=== PATIENT | female | born 2000 | race Caucasian/White ===

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

== ENCOUNTER 2022-07-19 04:33 | Emergency (ER) | payer BC ==
--- OUTSIDE RECORDS SUMMARY | 2022-07-19 04:37 | XMS REPORT | Continuity of Care Document ---
:[address] [facility] t Address [address] [place] [address] Care Team Providers Name Role Phone Lily Kenny Primary Care Physician LILY JOHNSON Attending Clinician Unavailable SOCO RICE Attending Clinician Unavailable Doctor Unassigned, Ivalee Attending Clinician Unavailable Lab, Ang - Db Attending Clinician Unavailable Lily Kenny Attending Clinician Soco [place] Attending Clinician KYA GOVEA Attending Clinician Unavailable Payers Payer Name Policy Type Policy Number Effective Date Expiration Date S [facility] 2 [id number] 2022 00:00:00 [facility] [id number] 2016 00:00:00 Problems Condition Condition Condition Status Onset Resolution Last Treating Co mments Source Name Details Category Date Date Treatment Clinician Date Encounter Encounter Disease Active 2021-06 Uni vers to to 2- [place] [facility] Anxiety Anxiety Disease Active 2021-06 Univers and and 2-05 [place] [facility] Mood Mood Disease Active 2021-06 Univers disorder disorder 2-05 ity of 00:00: [place] [facility] Allergies, Adverse Reactions, Alerts Allergy Allergy Status Severity Reaction(s) Onset Inactive Treating Comm ents Source Name Type Date Date Clinician PENICILL DRUG Active Hives 2021-06 Univers IN INGREDI 2-05 ity of 00:00: [place] 00 Medical Branch Penicill Propensi Active Hives 2021-06 Legs turn Uni vers in ty to 05 black and ity of adverse 00:00: blue [place] reaction 00 Medical s Branch NO KNOWN Drug Active Univers ALLERGIE Class ity of S [facility] [place] Social History Social Habit Start Date Stop Date Quantity Comments Source Exposure to 2022-05-11 2022-05-21 Not sure [facility] SARS-CoV-2 00:00:00 09:45:00 [facility] (event) Branch Tobacco use and 2022-05-21 2022-05-21 Smokeless tobacco Un iversity of exposure 00:00:00 00:00:00 non-user [facility] [place] Alcohol intake 2022-05-21 2022-05-21 Current drinker of Un iversity of 00:00:00 00:00:00 alcohol (finding) [facility] edical [place] Alcohol Comment 2022-05-21 2022-05-21 Occasional Universit y of 00:00:00 00:00:00 [facility] [place] Sex Assigned At [birth year] Universit y of 00:00:00 00:00:00 [facility] [place] Smoking Status Start Date Stop Date Source Tobacco [facility] Medications Ordered Filled Start Stop Current Ordering Indication Dosage Frequency Signature Comments Components Source Medication Medication Date Date Medication? Clinician (SIG) Name Name lamoTRIgine 2021-06 Yes [id number] Take 25mg Univers 25 mg 2-05 daily for ity of tablet 00:00: 2 weeks, [place] 00 then 50mg Medical for 2 Branch weeks Lamotrigine 2021-06 Yes [id number] 50mg Take 1 Univers 50 mg 2-05 tablet by ity of tablet 00:00: mouth in [place] 00 the Medical morning. Branch lamoTRIgine 2021-06 Yes [id number] Take 25mg Univers 25 mg 2-05 daily for ity of tablet 00:00: 2 weeks, [place] 00 then 50mg Medical for 2 Branch weeks Lamotrigine 2021-06 Yes [id number] 50mg Take 1 Univers 50 mg 2-05 tablet by ity of tablet 00:00: mouth in [place] 00 the Medical morning. [place] lamoTRIgine 2021-06 Yes [id number] Take 25mg Univers 25 mg 2-05 daily for ity of tablet 00:00: 2 weeks, [place] 00 then 50mg Medical for 2 Branch weeks Lamotrigine 2021-06 Yes [id number] 50mg Take 1 Univers 50 mg 2-05 tablet by ity of tablet 00:00: mouth in [place] 00 the Medical morning. [place] lamoTRIgine 2021-06 Yes [id number] Take 25mg Univers 25 mg 2-05 daily for ity of tablet 00:00: 2 weeks, [place] 00 then 50mg Medical for 2 Branch weeks Lamotrigine 2021-06 Yes [id number] 50mg Take 1 Univers 50 mg 2-05 tablet by ity of tablet 00:00: mouth in [place] 00 the Medical morning. [place] lamoTRIgine 2021-06 Yes [id number] Take 25mg Univers 25 mg 2-05 daily for ity of tablet 00:00: 2 weeks, [place] 00 then 50mg Medical for 2 Branch weeks Lamotrigine 2021-06 Yes [id number] 50mg Take 1 Univers 50 mg 2-05 tablet by ity of tablet 00:00: mouth in [place] 00 the Medical morning. [place] lamoTRIgine 2021-06 Yes [id number] Take 25mg Univers 25 mg 2-05 daily for ity of tablet 00:00: 2 weeks, [place] 00 then 50mg Medical for 2 Branch weeks Lamotrigine 2021-06 Yes [id number] 50mg Take 1 Univers 50 mg 2-05 tablet by ity of tablet 00:00: mouth in [place] 00 the Medical morning. [place] lamoTRIgine 2021-06 Yes [id number] Take 25mg Univers 25 mg 2-05 daily for ity of tablet 00:00: 2 weeks, [place] 00 then 50mg Medical for 2 Branch weeks Lamotrigine 2021-06 Yes [id number] 50mg Take 1 Univers 50 mg 2-05 tablet by ity of tablet 00:00: mouth in [place] 00 the Medical morning. [place] Vital Signs Vital Name Observation Time Observation Value Comments Source Systolic blood 2022-05-21 16:07:00 129 mm[Hg] Ashley contreras [facility] pressure Medical Branch Diastolic blood 2022-05-21 16:07:00 77 mm[Hg] [facility] pressure Medical Branch Heart rate 2022-05-21 16:07:00 87 /min [facility] Body height 2022-05-21 16:07:00 160 cm [facility] Body weight 2022-05-21 16:07:00 61.281 kg [facility] BMI 2022-05-21 16:07:00 23.93 kg/m2 [facility] Oxygen saturation 2022-05-21 16:07:00 100 /min [facility] in Arterial blood Medical Br anch by Pulse oximetry Procedures Procedure Date / Time Performed Performing Clinician Sour e PATIENT AGREEMENTS AND 2022-05-31 06:01:00 Doctor Unassigned, No [facility] CONTRACTS [facility] COMP. METABOLIC PANEL 2022-05-21 17:01:00 Lily Johnson [facility] ([id number]) [facility] CONSENT/REFUSAL FOR 2022-05-21 15:47:22 Doctor Unassigned, No [facility] DIAGNOSIS AND [facility] TREATMENT ASSIGNMENT OF BENEFITS 2022-05-21 15:47:05 Doctor Unasskvng, No [facility] Encounters Start End Encounter Admission Attending Care Care Encounter Source Date/Time Date/Time Type Type Clinicians Facility Department ID 2022-06-20 2022-06-20 Outpatient ZEE RICE [id number] Zee 13:30:00 13:30:00 SOCO granda 2022-06-12 2022-06-12 Outpatient ZEE RICE [id number] Zee 00:00:00 00:00:00 SOCO granda 2022-06-04 2022-06-[address] [facility] [id number] Univers 11:00:00 11:00:00 LILY jaimes [facility] 2022-05-31 2022-05-31 Orders Doctor BARCENAS [id number] Univers 00:00:00 00:00:00 Only Unassigned, GEOVANY [id number] [facility] 4.2.7.2.686 [place] [id number] [address] 2022-05-21 2022-05-21 Process Improvement Analyst Lab, Ang - Db [facility] 1.2.840.1 [id number] Univers 11:00:00 13:49:53 Visit Lily Johnson [id number] [facility] 4.2.7.2.686 [place] as YAMILETH?BLEA [phone] [facility] [address] [place] MEDICAL OFFICE [facility] 2022-05-21 2022-05-21 Outpatient R [facility] [id number] Univers 10:00:00 10:54:45 LILY ity of [facility] [place] 2022-05-21 2022-05-21 Office Elizabeth [facility] [id number] Univers 10:00:00 10:54:45 Visit Lily LONDONO [id number] it y of [place] 4.2.7.2.686 [place] as YAMILETH?BLEA [id number] [facility] [address] [facility] OFFICE [facility] 2022-05-21 2022-05-21 Letter Elizabeth [facility] [id number] Univers 00:00:00 00:00:00 (Out) Lily LONDONO [id number] it y of [place] 4.2.7.2.686 [place] as YAMILETH?BLEA [phone] [address] OFFICE [facility] 2022-05-21 2022-05-21 Orders Doctor SWAPNA 1.2.840.114 [id number] Univers 00:00:00 00:00:00 Only Unassigned, GEOVANY [id number] ity of Ivalee [facility] 4.2.7.2.686 [place] as [id number] [address] 2022-02-22 2022-02-22 Office Te Rice 1.2.840.114 [id number] Zee 10:30:00 11:00:00 Visit Soco Vogt 350.1.13.13 Se onesimo 1.2.7.2.686 [id number] 2022-02-21 2022-02-21 Outpatient ZEE GOVEA [id number] Zee 00:00:00 00:00:00 KYA granda Results Test Description Test Time Test Comments Results Result Comments Source COMP. METABOLIC PANEL (06009) 2022-05-21 22:23:49 Test Item Value Reference Range Interpretation Comme nts NA (test code = 6770687470) 140 mmol/L 135-145 K (test code = 9405237628) 3.9 mmol/L 3.5-5.0 CL (test code = 4627055822) 103 mmol/L 98-108 CO2 TOTAL (test code = 2602035415) 30 mmol/L 23-31 AGAP (test code = 3247666860) 2-16 BUN (test code = 8177479002) 9 mg/dL 7-23 GLUCOSE (test code = 6313145027) 113 mg/dL 70-110 H CREATININE (test code = 0.61 mg/dL 0.50-1.04 6138735325) TOTAL BILI (test code = 0.4 mg/dL 0.1-1.3 0417006074) CALCIUM (test code = 8428351718) 9.9 mg/dL 8.6-10.6 T PROTEIN (test code = 4259676122) 7.5 g/dL 6.3-8.2 ALBUMIN (test code = 9310882594) 4.9 g/dL 3.5-5.0 ALK PHOS (test code = 7272691135) 59 U/L 34-122 ALTv (test code = 1742-6) 14 U/L 5-35 AST(SGOT) (test code = 8965519998) 19 U/L 13-40 eGFR (test code = 0331883965) mL/min/1.73m2 MALDONADO (test code = MALDONADO) Association of Glomerular Filtration Rate (GFR) and Staging of Kidney Disease* + +-------- + ------+| GFR (mL/min/1.73 m2) ?| With Kidney Damage ?| ?Without Kidney Damage+ +-- + +| ?>90 ?| ?Stage one ?| ? Normal ?+ +------- + -------+| ?60-89 ?| ?Stage two ?| ? Decreased GFR ? + +-------- + ------+| ?30-59 ?| ?Stage three ?| ? Stage three ? + +-------- + ------+| ?15-29 ?| ?Stage four ? | ? Stage four ?+ +------- + -------+| ?<15 (or dialysis) ? ?| ?Stage five ? | ? Stage five ?+ +------- + -------+ *Each stage assumes the associated GFR level has been in effect for at least three months. ?Stages 1 to 5, with or without kidney disease, indicate chronic kidney disease. Notes: Determination of stages one and two (with eGFR >59mL/min/1.73 m2) requires estimation of kidney damage for at least three months as defined by structural or functional abnormalities of the kidney, manifested by either:Pathological abnormalities or Markers of kidney damage (including abnormalities in the composition of the blood or urine or abnormalities in imaging tests). Lab Interpretation (test code = Abnormal 45022-1) [facility]"
--- NOTE | 2022-07-19 05:18 | ER ---
Nurse's Notes [facility] Name: Mary Nevarez Age: 22 yrs Sex: Female : 2000 Arrival Date: 07/19/2022 Time: 04:37 Bed 20 Private MD: Diagnosis: Adjustment disorders Presentation: 07/19 04:47 Chief complaint: Patient states: I have been feeling extremely sad and on the past ha1 whenever I have gotten like this I have attempted to harm myself and I do not want to get like that. right now I am not trying to harm my self. 04:47 Coronavirus screen: Vaccine status: Patient reports being unvaccinated. Ebola Screen: ha1 No symptoms or risks identified at this time. Initial Sepsis Screen: Does the patient meet any 2 criteria? No. Patient's initial sepsis screen is negative. Does the patient have a suspected source of infection? No. Patient's initial sepsis screen is negative. Risk Assessment: Do you want to hurt yourself or someone else? Patient reports no desire to harm self or others. Onset of symptoms was July 19, 2022. 04:47 Method Of Arrival: Ambulatory ha1 04:47 Acuity: ZOEY 4 ha1 Triage Assessment: 04:47 General: Appears comfortable, Behavior is calm, cooperative. Pain: Denies pain. EENT: ha1 No deficits noted. No signs and/or symptoms were reported regarding the EENT system. Neuro: Level of Consciousness is awake, alert, obeys commands, Oriented to person, place, time, situation. Neuro: Reports feeling anxious . Cardiovascular: Capillary refill < 3 seconds Patient's skin is warm and dry. Respiratory: Airway is patent Respiratory effort is even, unlabored, Respiratory pattern is regular, symmetrical. GI: Abdomen is flat. : No signs and/or symptoms were reported regarding the genitourinary system. Derm: Skin is pink, warm \\T\\ dry. Musculoskeletal: Circulation, motion, and sensation intact. Range of motion: intact in all extremities. Historical: - Allergies: 05:02 PENICILLINS; ha1 05:02 Amoxicillin; ha1 - Home Meds: 05:02 None [Active]; ha1 - PMHx: 05:02 Anxiety; Depressive disorder; ha1 - Immunization history:: Adult Immunizations up to date. - Social history:: Smoking status: Patient denies any tobacco usage or history of. - Family history:: not pertinent. Screenin:47 Abuse screen: Denies threats or abuse. Denies injuries from another. Nutritional ha1 screening: No deficits noted. Tuberculosis screening: No symptoms or risk factors identified. 04:47 [facility] ED Fall Risk Assessment (Adult) History of falling in the last 3 months, ha1 including since admission No falls in past 3 months (0 pts) Confusion or Disorientation No (0 pts) Intoxicated or Sedated No (0 pts) Impaired Gait No (0 pts) Mobility Assist Device Used No (0 pt) Altered Elimination No (0 pt) Score/Fall Risk Level 0 - 2 = Low Risk Oriented to surroundings, Maintained a safe environment, Educated pt \\T\\ family on fall prevention, incl call for assistance when getting out of bed, Hourly rounding (assess needs \\T\\ fall precautionary measures) done. Assessment: 05:32 General: Appears in no apparent distress. comfortable, Behavior is calm, cooperative. ll3 Pain: Denies pain. Neuro: No deficits noted. Cardiovascular: No deficits noted. Respiratory: No deficits noted. GI: No deficits noted. : No deficits noted. Psych: 04:47 [place] Suicide Severity Screening: In the past month, have you wished you were ha1 or wished you could go to sleep and not wake up? Patient responds "No." "In the past month, have you actually had any thoughts of killing yourself?" Patient responds "no." "In your lifetime, have you ever done anything, started to do anything, or prepared to do anything to end your life?" Patient responds "yes." Patient reports suicidal intent within 3 past months. Subjective: Patient's mood is sad. Objective: Patient is cooperative. Interventions: Patient placed in hospital gown. Safety Checks: Door is open. Pt denies substance abuse. Commitment: Patient will be a voluntary commitment. Vital Signs: 04:47 BP 120 / 82; Pulse 104; Resp 18 S; Temp 98.4; Pulse Ox 100% on R/A; Weight 58.97 kg; ha1 Height 5 ft. 4 in. (162.56 cm); 05:36 BP 115 / 77; Pulse 68; Resp 16; Pulse Ox 99% on R/A; ll3 04:47 Body Mass Index 22.31 (58.97 kg, 162.56 cm) ha1 ED Course: 04:37 Patient arrived in ED. ja2 04:47 Patient has correct armband on for positive identification. Bed in low position. Call 1 light in reach. Side rails up X 1. 04:48 Aaron Clayton MD is Attending Physician. rt 04:57 Chayito Phelps, RN is Primary Nurse. ha1 05:02 Triage completed. ha1 05:05 Arm band placed on right wrist. ha1 05:36 No provider procedures requiring assistance completed. Patient did not have IV access ll3 during this emergency room visit. Administered Medications: No medications were administered Medication: 05:36 VIS not applicable for this client. ll3 Outcome: 05:18 Discharge ordered by MD. rt 05:36 Discharged to home ambulatory. ll3 05:36 Condition: stable 05:36 Discharge instructions given to patient, Instructed on discharge instructions, follow up and referral plans. Demonstrated understanding of instructions, follow-up care. 05:36 Patient left the ED. ll3 Signatures: Micki Pinedo 2 Vernell Arita RN RN 3 Chayito Phelps, DARLIN RN 1 Aaron Clayton MD MD rt Corrections: (The following items were deleted from the chart) 05:03 05:02 PMHx: None; ha1 ha1
--- NOTE | 2022-07-19 05:19 | EDPHYS ---
Physician Documentation [facility] Name: Mary Nevarez Age: 22 yrs Sex: Female : 2000 Arrival Date: 07/19/2022 Time: 04:37 Bed 20 Private MD: ED Physician Aaron Clayton HPI: 07/19 05:20 This 22 yrs old Female presents to ER via Ambulatory with complaints of Psych Problem. rt 05:20 The patient presents to the emergency department with depression. Onset: The rt symptoms/episode began/occurred 5 day(s) ago. Patient presents to the ED with depression for the past 5 days. She is currently taking Abilify for her depression. She states that when she gets depressed, sometimes she gets suicidal or has thoughts about her anybody else but she denies any suicidality at this time. Patient is try to get in with [employer], states that she called them on Saturday, they have not called her back yet. She denies any physical symptoms, other acute complaints. Symptoms are mild in severity, no other aggravating or alleviating factors.. Historical: - Allergies: 05:02 PENICILLINS; ha1 05:02 Amoxicillin; ha1 - Home Meds: 05:02 None [Active]; ha1 - PMHx: 05:02 Anxiety; Depressive disorder; ha1 - Immunization history:: Adult Immunizations up to date. - Social history:: Smoking status: Patient denies any tobacco usage or history of. - Family history:: not pertinent. ROS: 05:20 Constitutional: Negative for fever, chills, and weight loss, Cardiovascular: Negative rt for chest pain, palpitations, and edema, Respiratory: Negative for shortness of breath, cough, wheezing, and pleuritic chest pain, Abdomen/GI: Negative for abdominal pain, nausea, vomiting, diarrhea, and constipation, MS/Extremity: Negative for injury and deformity, Skin: Negative for injury, rash, and discoloration, Neuro: Negative for headache, weakness, numbness, tingling, and seizure. 05:20 Psych: Positive for depression, Negative for homicidal ideation, suicidal ideation. Exam: 05:20 Constitutional: This is a well developed, well nourished patient who is awake, alert, rt and in no acute distress. Head/Face: Normocephalic, atraumatic. Chest/axilla: Normal chest wall appearance and motion. Nontender with no deformity. No lesions are appreciated. Cardiovascular: Regular rate and rhythm with a normal S1 and S2. No gallops, murmurs, or rubs. Normal PMI, no JVD. No pulse deficits. Respiratory: Lungs have equal breath sounds bilaterally, clear to auscultation and percussion. No rales, rhonchi or wheezes noted. No increased work of breathing, no retractions or nasal flaring. Abdomen/GI: Soft, non-tender, with normal bowel sounds. No distension or tympany. No guarding or rebound. No evidence of tenderness throughout. MS/ Extremity: Pulses equal, no cyanosis. Neurovascular intact. Full, normal range of motion. Neuro: Awake and alert, GCS 15, oriented to person, place, time, and situation. Cranial nerves II-XII grossly intact. Motor strength 5/5 in all extremities. Sensory grossly intact. Cerebellar exam normal. Normal gait. 05:20 Psych: Calm, cooperative, affect and mood are depressed no suicidal ideation, homicidal ideation. Vital Signs: 04:47 BP 120 / 82; Pulse 104; Resp 18 S; Temp 98.4; Pulse Ox 100% on R/A; Weight 58.97 kg; ha1 Height 5 ft. 4 in. (162.56 cm); 05:36 BP 115 / 77; Pulse 68; Resp 16; Pulse Ox 99% on R/A; ll3 04:47 Body Mass Index 22.31 (58.97 kg, 162.56 cm) ha1 MDM: 05:08 Patient medically screened. rt 05:20 Differential diagnosis: Depression, suicidal ideation, homicidal ideation. Data rt reviewed: vital signs, nurses notes. Test considered but Not performed: Labs: Stable vital signs, labs not indicated. ED course: Patient presents to the ED with depression, seems to be situational. She denies any suicidal thoughts at this time. Patient is cooperative, has good insight and goal-directed thought. At this time, I do not believe that she is an imminent threat to herself nor others nor she gravely disabled. Do not believe that she requires involuntary psychiatric evaluation. I offered to patient discussed with [facility] or to have her call them in the morning, patient opted to call them in the morning. Strict return precautions for any suicidal thoughts were given to the patient verbalized understanding discomfort with this plan.. Administered Medications: No medications were administered Disposition Summary: 07/19/22 05:18 Discharge Ordered Location: Home rt Problem: an acute exacerbation rt Symptoms: have improved rt Condition: Stable rt Diagnosis - Adjustment disorders rt Followup: rt - With: Private Physician - When: 1 - 2 days - Reason: Discharge Instructions: - Discharge Summary Sheet rt - Adjustment Disorder, Adult rt - Managing Depression, Adult rt Forms: - Medication Reconciliation Form rt - Thank You Letter rt - Work release form ll3 - Antibiotic Education rt - Prescription Opioid Use rt Signatures: Chayito Phelps RN RN ha1 Aaron Clayton MD MD rt Corrections: (The following items were deleted from the chart) 05:03 05:02 PMHx: None; ha1 ha1
[2022-07-19 05:42] VITALS: TEMP 98.4
[2022-07-19 05:43] VITALS: BP 115/77; O2SAT 99
== END 2022-07-19 05:36 | disposition home or self-care (01) ==
LOC: ER 04:33
DX: F43.20 Adjustment disorder, unspecified (principal); Z88.0 Allergy status to penicillin; Z88.1 Allergy status to other antibiotic agents
CPT/HCPCS: 99284

== ENCOUNTER 2022-12-27 21:41 | Emergency (ER) | payer BC ==
--- OUTSIDE RECORDS SUMMARY | 2022-12-27 21:44 | XMS REPORT | Continuity of Care Document ---
:2000 Author Organization [facility] t Address [address] [place] [id number] Care Team Providers Name Role Phone Lily Kenny Primary Care Physician ShannanPapbrian Attending Clinician Unavailable LILY JOHNSON Attending Clinician Unavailable SOCO RICE Attending Clinician Unavailable Doctor Unassigned, [place] Attending Clinician Unavailable Lab, Ang - Db Attending Clinician Unavailable Lily Kenny Attending Clinician Soco [place] Attending Clinician KYA GOVEA Attending Clinician Unavailable G_Pappas Admitting Clinician Unavailable Payers Payer Name Policy Type Policy Number Effective Date Expiration Date S e[place] [id number] 2016 00:[place]:00 [place] 2 [id number] 2022 00:00:00 [place] [id number] 2016 00:00:00 Problems Condition Condition Condition Status Onset Resolution Last Treating Co mments Source Name Details Category Date Date Treatment Clinician Date Encounter Encounter Disease Active 2021-06 Uni vers to to 2- [place] [facility] Anxiety Anxiety Disease Active 2021-06 Univers and and 2 [place] [facility] [place] Mood Mood Disease Active 2021-06 Univers disorder disorder 07-22 ity of 00:00: [place] 00 Medical Branch Allergies, Adverse Reactions, Alerts Allergy Allergy Status Severity Reaction(s) Onset Inactive Treating Comm ents Source Name Type Date Date Clinician PENICILL DRUG Active Hives 2021-06 Univers IN INGREDI 205 ity of 00:00: [place] 00 Medical Branch Penicill Propensi Active Hives 2021-06 Legs turn Uni vers in ty to 07-22 black and ity of adverse 00:00: blue [place] reaction 00 Medical s Branch PENICILL Allergy Active [place] [facility] e [facility] NO KNOWN Drug Active Univers ALLERGIE Class ity of S [facility] Amoxicil Allergy Active [place] to [facility] e [facility] Social History Social Habit Start Date Stop Date Quantity Comments Source Exposure to 2022-05-11 2022-05-21 Not sure [facility] SARS-CoV-2 00:00:00 09:45:00 [facility] (event) Branch Tobacco use and 2022-05-21 2022-05-21 Smokeless tobacco Un iversity of exposure 00:00:00 00:00:00 non-user [facility] Alcohol intake 2022-05-21 2022-05-21 Current drinker of Un iversity of 00:00:00 00:00:00 alcohol (finding) [facility] edical [place] Alcohol Comment 2022-05-21 2022-05-21 Occasional Universit y of 00:00:00 00:00:00 [facility] Sex Assigned At [birth year] Universit y of 00:00:00 00:00:00 [facility] Smoking Status Start Date Stop Date Source Never Smoker [facility] Tobacco [facility] consumption [facility] unknown Branch Medications Ordered Filled Start Stop Current Ordering Indication Dosage Frequency Signature Comments Components Source Medication Medication Date Date Medication? Clinician (SIG) Name Name lamoTRIgine 2021-06 Yes [id number] Take 25mg Univers 25 mg 2-05 daily for ity of tablet 00:00: 2 weeks, [place] 00 then 50mg Medical for 2 Branch weeks Lamotrigine 2021-06 Yes [id number] 50mg Take 1 Univers 50 mg 2-05 tablet by ity of tablet 00:00: mouth in [place] 00 the Medical morning. Branch lamoTRIgine 2021-06 Yes [id number] Take 25mg Univers 25 mg 2-05 daily for ity of tablet 00:00: 2 weeks, [place] 00 then 50mg Medical for 2 Branch weeks Lamotrigine 2021-06 Yes [id number] 50mg Take 1 Univers 50 mg 2-05 tablet by ity of tablet 00:00: mouth in [place] 00 the Medical morning. [place] lamoTRIgine 2021-06 Yes [id number] Take 25mg Univers 25 mg 2-05 daily for ity of tablet 00:00: 2 weeks, [place] 00 then 50mg Medical for 2 Branch weeks Lamotrigine 2021-06 Yes [id number] 50mg Take 1 Univers 50 mg 2-05 tablet by ity of tablet 00:00: mouth in [place] 00 the Medical morning. [place] lamoTRIgine 2021-06 Yes [id number] Take 25mg Univers 25 mg 2-05 daily for ity of tablet 00:00: 2 weeks, 00 then 50mg Medical for 2 Branch weeks Lamotrigine 2021-06 Yes [id number] 50mg Take 1 Univers 50 mg 2-05 tablet by ity of tablet 00:00: mouth in [place] 00 the Medical morning. [place] lamoTRIgine 2021-06 Yes [id number] Take 25mg Univers 25 mg 2-05 daily for ity of tablet 00:00: 2 weeks, [place] 00 then 50mg Medical for 2 Branch weeks Lamotrigine 2021-06 Yes [id number] 50mg Take 1 Univers 50 mg 2-05 tablet by ity of tablet 00:00: mouth in [place] 00 the Medical morning. [place] lamoTRIgine 2021-06 Yes [id number] Take 25mg Univers 25 mg 2-05 daily for ity of tablet 00:00: 2 weeks, [place] 00 then 50mg Medical for 2 Branch weeks Lamotrigine 2021-06 Yes [id number] 50mg Take 1 Univers 50 mg 2-05 tablet by ity of tablet 00:00: mouth in [place] 00 the Medical morning. [place] lamoTRIgine 2021-06 Yes [id number] Take 25mg Univers 25 mg 2-05 daily for ity of tablet 00:00: 2 weeks, [place] 00 then 50mg Medical for 2 Branch weeks Lamotrigine 2021-06 Yes [id number] 50mg Take 1 Univers 50 mg 2-05 tablet by ity of tablet 00:00: mouth in [place] 00 the Medical morning. Branch doxycycline doxycycline No 1capsul BID doxycyclin [place] monohydrate monohydrate e(s) e d a 100 mg 100 mg monohydrat Medic al capsule capsule e 100 mg Group Take 1 Take 1 capsule capsule capsule Take 1 twice a day twice a day capsule by oral by oral twice a route for 7 route for 7 day by days. days. oral route for 7 days. oxcarbazepi oxcarbazepi No oxcarbazep [place] ne 300 mg/5 ne 300 mg/5 ine 300 da mL (60 mL (60 mg/5 mL Medical mg/mL) oral mg/mL) oral (60 mg/mL) Group suspension suspension oral TAKE 2.5 TAKE 2.5 suspension ML(S) BY ML(S) BY TAKE 2.5 MOUTH TWICE MOUTH TWICE ML(S) BY DAILY FOR DAILY FOR MOUTH LABILE LABILE TWICE MOOD. MOOD. DAILY FOR LABILE MOOD. Vital Signs Vital Name Observation Time Observation Value Comments Source BP Diastolic 2022-08-28 00:00:00 82 mm[facility]Hg] [facility] Height 2022-08-28 00:00:00 63 [in_i] [facility] BMI (Body Mass 2022-08-28 00:00:00 25 kg/m2 [facility] routeman Medical Index) Group BP Systolic 2022-08-28 00:00:00 134 mm[Hg] [place] [facility] Body Weight 2022-08-28 00:00:00 141.2 [lb_av] [place] [facility] Systolic blood 2022-05-21 16:07:00 129 mm[Hg] [facility] pressure [facility] Diastolic blood 2022-05-21 16:07:00 77 mm[Hg] [facility] [place] Heart rate 2022-05-21 16:07:00 87 /min [facility] Body height 2022-05-21 16:07:00 160 cm [facility] Body weight 2022-05-21 16:07:00 61.281 kg [facility] BMI 2022-05-21 16:07:00 23.93 kg/m2 [facility] Oxygen saturation 2022-05-21 16:07:00 100 /min [facility] in Arterial blood Medical Br anch by Pulse oximetry Procedures Procedure Date / Time Performed Performing Clinician [facility] e PATIENT AGREEMENTS AND 2022-05-31 06:01:00 Doctor Unassigned, No [facility] CONTRACTS Name Medical Branch COMP. METABOLIC PANEL 2022-05-21 17:01:[address] [facility] ([id number]) Medical Branch CONSENT/REFUSAL FOR 2022-05-21 15:47:22 Doctor Unassigned, No [facility] DIAGNOSIS AND [facility] Medical Branch TREATMENT ASSIGNMENT OF BENEFITS 2022-05-21 15:47:05 Doctor Unassigned, No [facility] Plan of Care Planned Activity Planned Date Details Comments Source Diagnostic Test 2022-08-28 urinalysis, [place] [facility] Pending 00:00:00 dipstick [code = Group urinalysis, dipstick] Diagnostic Test 2022-08-28 test, [place] [facility] Pending 00:00:00 urine [code = Group test, urine] Diagnostic Test 2022-08-28 [place], vaginal [place] [facility] Pending 00:00:00 [code = wet [place], Group vaginal] Diagnostic Test 2022-08-28 CT + NG + TV, DNA, [place] [facility] Pending 00:00:00 urine/swab [code = Group CT + NG + TV, DNA, urine/swab] Instructions [facility] Encounters Start End Encounter Admission Attending Care Care Encounter Source Date/Time Date/Time Type Type Clinicians Facility Department ID 2022-08-28 2022-08-28 [facility] [id number] [place] 00:00:00 00:00:00 [facility] 2022-08-28 2022-08-28 [facility] [place] - [id number] [place] 00:00:00 00:00:00 Discovery ashley Bee MD: [address] [facility] Edis [facility] [address] [address] , Ph. [phone] 2022-08-14 2022-08-14 Outpatient G_Pappas MMG MM [id number] [place] 00:00:00 00:00:00 0228 [facility] 2022-07-31 2022-07-31 Outpatient G_Pappas MMG MMG [id number] [place] 00:00:00 00:00:00 0214 [facility] 2022-06-20 2022-06-20 Outpatient ZEE RICE [id number] Zee 13:30:00 13:30:00 SOCO Seybol kalee 2022-06-12 2022-06-12 Outpatient ZEE RICE ZEE [id number] Zee 00:00:00 00:00:00 SOCO Donnellyol kalee 2022-06-04 2022-06-04 [facility] [id number] Univers 11:00:00 11:00:00 LILY theodore [facility] 2022-05-31 2022-05-31 Orders Doctor SWAPNA [id number] Univers 00:00:00 00:00:00 Only Unassigned, GEOVANY [id number] ity of [facility] [id number] [place] as [phone] [address] 2022-05-21 2022-05-21 [facility], Ang - [facility] [id number] Univers 11:00:00 13:49:53 Visit Lily Johnson [id number] ity of [place] 4.2.7.2.686 [place] as YAMILETH?BLEA [id number] Nj velma MARIE [address] [place] MEDICAL OFFICE BUILDING 2022-05-21 2022-05-21 Outpatient R [facility] [id number] Univers 10:00:00 10:54:45 LILY jaimes [facility] 2022-05-21 2022-05-21 [facility] [id number] Univers 10:00:00 10:54:45 Visit [facility] [id number] it y of [place] 4.2.7.2.686 [place] as YAMILETH?BLEA [id number] N[place] velma ROM[address] MEDICAL OFFICE BUILDING 2022-05-21 2022-05-21 Letter Elizabeth [facility] [id number] Univers 00:00:00 00:00:00 (Out) Lily LONDONO [id number] it y of [facility] [id number] [place] as YAMILETH?BLEA [phone] Nj dical [facility] 044 Branch MEDICAL OFFICE BUILDING 2022-05-21 2022-05-21 Orders Doctor SWAPNA [id number] Univers 00:00:00 00:00:00 Only Unassigned, GEOVANY [id number] ity of [place] [facility] 4.2.7.2.686 [place] as [phone] [place] [address] Branch 2022-02-22 2022-02-22 Office Te Rice 1.2.840.114 [id number] Zee 10:30:00 11:00:00 Visit Soco Vogt 350.1.13.13 williamubaldo 1.2.7.2.686 [id number] 0 2022-02-21 2022-02-21 Outpatient ZEE GOVEA [id number] Zee 00:00:00 00:00:00 KYA granda Results Test Description Test Time Test Comments Results Result Comments Source Microscopic observation [Identifier] in Vaginal fluid by Wet 2022-08-28 14:39:19 preparation Test Item Value Reference Range Interpretation Comme nts Clue Cells (test code = Clue Cells) negative WBCs (test code = WBCs) positive Trichomonads (test code = Trichomonads) negative Epithelial cells (test code = Epithelial cells) normal RBCs (test code = RBCs) negative [facility], [id number] 13:58:30 Test Item Value Reference Range Interpretation Comments Test (test code = negative Test) [facility] macro (dipstick) panel - [id number] 13:57:58 Test Item Value Reference Range Interpretation Comments Leukocytes (test code = Leukocytes) Trace Nitrite (test code = Nitrite) negative Urobilinogen (test code = 1 Urobilinogen) Protein (test code = Protein) Negative pH (test code = pH) 8.5 Blood (test code = Blood) Negative Specific Glendo (test code = 1.015 Specific Glendo) Ketone (test code = Ketone) Negative Bilirubin (test code = Bilirubin) Negative Glucose (test code = Glucose) Negative Appearance (test code = Appearance) Clear Color (test code = Color) Yellow [facility]. METABOLIC PANEL ([id number])2022-05-21 22:23:49 Test Item Value Reference Range Interpretation Comments NA (test code = 140 mmol/L 135-145 [id number]) K (test code = 3.9 mmol/L 3.5-5.0 1002210586) CL (test code = 103 mmol/L 98-108 7601411193) CO2 TOTAL (test code = 30 mmol/L 23-31 9661078263) AGAP (test code = 2-16 5097539578) BUN (test code = 9 mg/dL 7-23 6507285402) GLUCOSE (test code = 113 mg/dL 70-110 H [id number]) CREATININE (test code = 0.61 mg/dL 0.50-1.04 2813952731) TOTAL BILI (test code = 0.4 mg/dL 0.1-1.9 1173940821) CALCIUM (test code = 9.9 mg/dL 8.6-10.6 4714898064) T PROTEIN (test code = 7.5 g/dL 6.3-8.2 3244506759) ALBUMIN (test code = 4.9 g/dL 3.5-5.0 9331911615) ALK PHOS (test code = 59 U/L 34-122 6913064956) ALTv (test code = 14 U/L 5-35 2-6) AST(SGOT) (test code = 19 U/L 13-40 6090377197) eGFR (test code = mL/min/1.73m2 9168996632) MALDONADO (test code = MALDONADO) Association of Glomerular Filtration Rate (GFR) and Staging of Kidney Disease* + --+ --+ ------+| GFR (mL/min/1.73 m2) ?| With Kidney Damage ?| ?Without Kidney Damage+ --------+ --------+ +| ?>90 ?| ?Stage one ?| ? Normal ?+ ---+ ---+ -------+| ?60-89 ?| ?Stage two ?| ? Decreased GFR ? + --+ --+ ------+| ?30-59 ?| ?Stage three ?| ? Stage three ? + --+ --+ ------+| ?15-29 ?| ?Stage four ? | ? Stage four ?+ ---+ ---+ -------+| ?<15 (or dialysis) ? ?| ?Stage five ? | ? Stage five ?+ ---+ ---+ -------+ *Each stage assumes the associated GFR [...] or abnormalities in imaging tests). Lab Interpretation Abnormal (test code = 45084-9) [facility]"
--- NOTE | 2022-12-27 22:08 | EDPHYS ---
Physician Documentation [facility] Name: Mary Nevarez Age: 22 yrs Sex: Female : 2000 Arrival Date: 12/27/2022 Time: 21:41 Bed IW6 Private MD: ED Physician John Harding HPI: 12/27 22:04 This 22 yrs old Female presents to ER via Unassigned with complaints of Sore Throat. rn 22:04 The patient presents with sore throat. The patient describes throat pain as dry, raw. rn Onset: The symptoms/episode began/occurred today. Severity of symptoms: At their worst the symptoms were mild, in the emergency department the symptoms are unchanged. Modifying factors: The symptoms are alleviated by nothing, the symptoms are aggravated by swallowing, Patient's oral intake status: good. Associated signs and symptoms: Pertinent negatives chest pain, rhinorrhea, shortness of breath, vomiting. The patient has not experienced similar symptoms in the past. The patient has not recently seen a physician. 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 - Social history:: Smoking status: Patient denies any tobacco usage or history of. Patient/guardian denies using alcohol, street drugs. - Family history:: not pertinent. - Hospitalizations: : No recent hospitalization is reported. 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 Exam: 22:04 Constitutional: This is a well developed, well nourished patient who is awake, alert, rn and in no acute distress. 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 No Meningismus. Cardiovascular: Regular rate and rhythm. No pulse deficits. Respiratory: No increased work of breathing, no retractions or nasal flaring. Vital Signs: 22:21 BP 127 / 86; Pulse 87; Resp 17 S; Temp 98.5(O); Pulse Ox 100% on R/A; Weight 63.5 kg lg3 (R); Height 5 ft. 3 in. (R); 22:21 Body Mass Index 24.80 (63.50 kg, 160.02 cm) lg3 MDM: 21:49 Patient medically screened. rn 22:06 Differential diagnosis: group A strep tonsillitis, tonsillitis. Data reviewed: vital rn signs, nurses notes, and as a result, I will discharge patient. Counseling: I had a detailed discussion with the patient and/or guardian regarding: the historical points, exam findings, and any diagnostic results supporting the discharge/admit diagnosis, the need for outpatient follow up, to return to the emergency department if symptoms worsen or persist or if there are any questions or concerns that arise at home. Special discussion: I discussed with the patient/guardian in detail that at this point there is no indication for admission to the hospital. It is understood, however, that if the symptoms persist or worsen the patient needs to return immediately for re-evaluation. Administered Medications: 22:11 Drug: AZITHromycin PO 500 mg Route: PO; lg3 22:11 Follow up: Response: No adverse reaction lg3 Disposition Summary: 12/27/22 22:07 Discharge Ordered Location: Home rn Problem: new rn Symptoms: are unchanged rn Condition: Stable rn Diagnosis - Acute tonsillitis, unspecified rn Followup: rn - With: Private Physician - When: As needed - Reason: Recheck today's complaints, Re-evaluation by your physician Discharge Instructions: - Discharge Summary Sheet rn - Tonsillitis rn Forms: - Medication Reconciliation Form rn - Thank You Letter rn - Antibiotic pattern setter - Prescription Opioid Use rn - Patient Portal Instructions rn Prescriptions: - Zithromax Z-Matt 250 mg Oral Tablet - take 1 tablet by ORAL route as directed for 5 days Day 1 - take two (2) tablets rn one time. Day 2, 3, 4 , 5 take one (1) tablet once daily.; 6 tablet; Refills: 0, Product Selection Permitted Signatures: John Harding MD MD rn Gibson, Lacie, RN RN lg3 Corrections: (The following items were deleted from the chart) 22:06 22:04 Constitutional: This is a well developed, well nourished patient who is awake, rn alert, and in no acute distress. rn
[2022-12-27] MEDS ORDERED: AZITHROMYCIN 250 MG TAB ONE (22:19)
--- NOTE | 2022-12-27 22:26 | ER ---
Nurse's Notes [facility] Name: Mary Nevarez Age: 22 yrs Sex: Female : 2000 Arrival Date: 12/27/2022 Time: 21:41 Bed IW6 Private MD: Diagnosis: Acute tonsillitis, unspecified Presentation: 12/27 22:21 Chief complaint: Patient states: woke up with sore throat this morning. gotten worse lg3 throughout the day. now white patches present. Coronavirus screen: Client denies travel out of the [place] in the last 14 days. At this time, the client does not indicate any symptoms associated with coronavirus-19. Ebola Screen: No symptoms or risks identified at this time. Initial Sepsis Screen: Does the patient meet any 2 criteria? No. Patient's initial sepsis screen is negative. Does the patient have a suspected source of infection? No. Patient's initial sepsis screen is negative. Risk Assessment: Do you want to hurt yourself or someone else? Patient reports no desire to harm self or others. Onset of symptoms was December 27, 2022. 22:21 Method Of Arrival: Ambulatory lg3 22:21 Acuity: ZOEY 4 lg3 Triage Assessment: 22:22 General: Appears in no apparent distress. comfortable, Behavior is calm, cooperative. lg3 Pain: Complains of pain in throat. EENT: Throat is reddened has patchy exudate Reports difficulty swallowing. Neuro: No deficits noted. Tavares Agitation-Sedation Scale (RASS): 0 - Alert and Calm Level of Consciousness is awake, alert, obeys commands, Oriented to person, place, time, situation. Cardiovascular: No deficits noted. Denies chest pain, shortness of breath, Capillary refill < 3 seconds Clubbing of nail beds is absent JVD is absent Patient's skin is warm and dry. Respiratory: No deficits noted. Airway is patent Respiratory effort is even, unlabored, Respiratory pattern is regular, symmetrical. GI: No deficits noted. No signs and/or symptoms were reported involving the gastrointestinal system. Abdomen is flat, non-distended. : No deficits noted. No signs and/or symptoms were reported regarding the genitourinary system. Derm: No deficits noted. No signs and/or symptoms reported regarding the dermatologic system. Skin is intact, is healthy with good turgor, Skin is dry, Skin is normal, Skin temperature is warm. Musculoskeletal: No deficits noted. No signs and/or symptoms reported regarding the musculoskeletal system. Circulation, motion, and sensation intact. Range of motion: intact in all extremities. 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 - Social history:: Smoking status: Patient denies any tobacco usage or history of. Patient/guardian denies using alcohol, street drugs. - Family history:: not pertinent. - Hospitalizations: : No recent hospitalization is reported. Screenin:24 [facility] ED Fall Risk Assessment (Adult) History of falling in the last 3 months, lg3 including since admission No falls in past 3 months (0 pts). Abuse screen: Denies threats or abuse. Denies injuries from another. Nutritional screening: No deficits noted. Tuberculosis screening: No symptoms or risk factors identified. Assessment: 22:24 General: see triage assessment . Respiratory: Airway is patent Respiratory effort is lg3 even, unlabored, Respiratory pattern is regular, symmetrical, Breath sounds are clear bilaterally. Vital Signs: 22:21 BP 127 / 86; Pulse 87; Resp 17 S; Temp 98.5(O); Pulse Ox 100% on R/A; Weight 63.5 kg lg3 (R); Height 5 ft. 3 in. (R); 22:21 Body Mass Index 24.80 (63.50 kg, 160.02 cm) lg3 ED Course: 21:42 Patient arrived in ED. [id number] 21:49 John Harding MD is Attending Physician. rn 22:11 Anamaria Paige RN is Primary Nurse. lg3 22:22 Triage completed. lg3 22:22 Arm band placed on left wrist. lg3 22:24 Patient has correct armband on for positive identification. lg3 22:24 No provider procedures requiring assistance completed. Patient did not have IV access lg3 during this emergency room visit. Administered Medications: 22:11 Drug: AZITHromycin PO 500 mg Route: PO; lg3 22:11 Follow up: Response: No adverse reaction lg3 Medication: 22:24 VIS not applicable for this client. lg3 Outcome: 22:07 Discharge ordered by . rn 22:24 Discharged to home ambulatory. lg3 22:24 Condition: stable 22:24 Discharge instructions given to patient, Instructed on discharge instructions, follow up and referral plans. medication usage, Demonstrated understanding of instructions, follow-up care, medications, Prescriptions given X 1. 22:26 Patient left the ED. lg3 Signatures: John Harding MD MD rn Gibson, Lacie, RN RN lg3 Lou Dodson [email or web address]
[2022-12-27 23:46] VITALS: BP 127/86; TEMP 98.5; O2SAT 100
== END 2022-12-27 22:26 | disposition home or self-care (01) ==
LOC: ER 21:41
DX: J03.90 Acute tonsillitis, unspecified (principal); Z88.0 Allergy status to penicillin; Z88.1 Allergy status to other antibiotic agents
CPT/HCPCS: 99283

== ENCOUNTER 2023-04-16 19:34 | Emergency (ER) | payer BC ==
[2023-04-16] MEDS ORDERED: ACETAMINOPHEN 325 MG TABLET ONE (20:26)
--- NOTE | 2023-04-16 23:34 | EDPHYS ---
Physician Documentation [facility] Name: Mary Perez Age: 23 yrs Sex: Female : 2000 Arrival Date: 04/16/2023 Time: 19:34 Bed IW1 Private MD: ED Physician Amadou Gill HPI: 04/16 20:30 This 23 yrs old Female presents to ER via Ambulatory with complaints of Flu Symptoms, cp Fever. 20:30 The patient or guardian reports cough, flu symptoms, body aches, cough. Onset: The cp symptoms/episode began/occurred yesterday. Associated signs and symptoms: Pertinent positives: sore throat, Pertinent negatives: chest pain, diarrhea, vomiting. Severity of symptoms: in the emergency department the symptoms are unchanged despite home interventions. 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 - Social history:: Smoking status: Patient denies any tobacco usage or history of. Patient/guardian denies using alcohol, street drugs. ROS: 20:35 Constitutional: Positive for body aches, fever, Negative for poor PO intake, cp 20:35 Eyes: Negative for injury, pain, redness, and discharge, cp 20:35 ENT: Negative for drainage from ear(s), ear pain, difficulty swallowing, difficulty handling secretions, 20:35 Neck: Negative for pain with movement, pain at rest, stiffness, 20:35 Cardiovascular: Negative for chest pain, 20:35 Respiratory: Positive for cough, with no reported sputum, Negative for wheezing, 20:35 Abdomen/GI: Negative for abdominal pain, vomiting, diarrhea, 20:35 Skin: Negative for rash, 20:35 Neuro: Negative for altered mental status, weakness, 20:35 All other systems are negative, Exam: 20:45 Constitutional: The patient appears in no acute distress, alert, awake, non-toxic, well cp developed, well nourished, 20:45 Head/Face: Normocephalic, atraumatic. cp 20:45 Eyes: Periorbital structures: appear normal, Conjunctiva: normal, no exudate, no injection, Sclera: no appreciated abnormality, Lids and lashes: appear normal, bilaterally, 20:45 ENT: External ear(s): are unremarkable, Ear canal(s): are normal, clear, TM's: bulging, is not appreciated, bilaterally, dullness, bilaterally, erythema, is not appreciated, bilaterally, Nose: nasal drainage, that is minimal, Mouth: Lips: moist, Oral mucosa: moist, Posterior pharynx: Airway: no evidence of obstruction, patent, Tonsils: with erythema, no enlargement, no exudate, erythema, that is mild, exudate, is not appreciated, Voice: is normal, 20:45 Neck: ROM/movement: is normal, is supple, without pain, no range of motions limitations, no meningismus, 20:45 Chest/axilla: Inspection: normal, 20:45 Cardiovascular: Rate: tachycardic, Rhythm: regular, 20:45 Respiratory: the patient does not display signs of respiratory distress, Respirations: normal, no use of accessory muscles, no retractions, labored breathing, is not present, Breath sounds: decreased breath sounds, are not appreciated, stridor, is not appreciated, + upper airway congestion. wheezing: is not appreciated, 20:45 Abdomen/GI: Inspection: abdomen appears normal, Palpation: abdomen is soft and non-tender, in all quadrants, 20:45 Skin: cellulitis, is not appreciated, no rash present. 20:45 Neuro: Orientation: to person, place \T\ time. Mentation: is normal, Motor: moves all fours, strength is normal, Sensation: is normal, Vital Signs: 20:01 BP 131 / 89; Pulse 136; Resp 21; Temp 101.3; Pulse Ox 100% ; Weight 61.23 kg; Height 5 jj7 ft. 3 in. ; Pain 5/10; 23:29 BP 109 / 74; Pulse 98; Resp 16; Temp 98.5; Pulse Ox 98% ; jj7 20:01 Body Mass Index 23.91 (61.23 kg, 160.02 cm) [facility] 20:01 Pain Scale: Adult [facility] MDM: 20:23 Patient medically screened. saul 20:30 Differential diagnosis: bronchitis, flu, pneumonia, COVID-19, sepsis, strep throat. cp 23:32 Data reviewed: vital signs, nurses notes, lab test result(s). cp 23:32 I considered the following discharge prescriptions or medication management in the emergency department Medications were administered in the Emergency Department. See MAR. Counseling: I had a detailed discussion with the patient and/or guardian regarding the historical points, exam findings, and any diagnostic results supporting the discharge/admit diagnosis, lab results, to return to the emergency department if symptoms worsen or persist or if there are any questions or concerns that arise at home. Response to treatment: the patient's symptoms have markedly improved after treatment, and as a result, I will discharge patient. 04/16 20:07 Order name: Flu; Complete Time: 21:46 jj7 04/16 20:07 Order name: COVID-19 SARS RT PCR; Complete Time: 21:46 jj7 04/16 20:15 Order name: Strep cp4 04/16 20:47 Order name: Throat Culture EDMS 04/16 21:47 Order name: Vital Signs; Complete Time: 23:37 cp Administered Medications: 20:19 Drug: Acetaminophen PO 650 mg PO once Route: PO; jj7 21:30 Follow up: Response: Temperature is decreased jj7 Disposition Summary: 04/16/23 23:33 Discharge Ordered Notes: Location: Home cp Problem: new cp Symptoms: have improved cp Condition: Stable cp Diagnosis - Influenza due to other identified influenza virus with other respiratory cp manifestations Followup: cp - With: Private Physician - When: 2 - 3 days - Reason: Worsening of condition Discharge Instructions: - Discharge Summary Sheet cp - Influenza, Adult cp - Form - Excuse from Work, School, or Physical Activity cp Forms: - Medication Reconciliation Form cp - Thank You Letter cp - Antibiotic Education cp - Prescription Opioid Use cp - Patient Portal Instructions cp - Leadership Thank You Letter cp Prescriptions: - Bromfed DM 2-30-10 mg/5 mL Oral syrup - administer 10 milliliter ORAL route every 6 hours as needed for cold symptoms; cp 180 milliliter; Refills: 0, Product Selection Permitted - Ibuprofen 800 mg Oral Tablet - take 1 tablet ORAL route every 8 hours As needed take with food; 30 tablet; cp Refills: 0, Product Selection Permitted - Tamiflu 75 mg Oral capsule - take 1 tablet ORAL route every 12 hours for 5 days; 10 tablet; Refills: 0, cp Product Selection Permitted Signatures: Dispatcher [employer] Amadou Hogan MD MD cha Page, Corey, PA PA cp Johnson, Juwairiyah, RN RN jj7
--- NOTE | 2023-04-16 23:34 | ER ---
Nurse's Notes [facility] Name: Mary Perez Age: 23 yrs Sex: Female : 2000 Arrival Date: 04/16/2023 Time: 19:34 Bed IW1 Private MD: Diagnosis: Influenza due to other identified influenza virus with other respiratory manifestations Presentation: 04/16 20:01 Chief complaint: Patient states: FLU LIKE SYMPTOMS. FEVER, COUGH, BODY ACHES, NAUSEA, jj7 CHEST HEAVINESS. Coronavirus screen: At this time, the client does not indicate any symptoms associated with coronavirus-19. Ebola Screen: No symptoms or risks identified at this time. Initial Sepsis Screen: Does the patient meet any 2 criteria? HR > 90 bpm. Yes Does the patient have a suspected source of infection? No. Patient's initial sepsis screen is negative. Risk Assessment: Do you want to hurt yourself or someone else? Patient reports no desire to harm self or others. Onset of symptoms was April 15, 2023. 20:01 Method Of Arrival: Ambulatory [facility] 20:01 Acuity: ZOEY 4 jj7 Triage Assessment: 20:05 General: Appears in no apparent distress. uncomfortable, Behavior is calm, cooperative, jj7 appropriate for age. Pain: Complains of pain in BODYACHES. 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 - Social history:: Smoking status: Patient denies any tobacco usage or history of. Patient/guardian denies using alcohol, street drugs. Screenin:05 [facility] ED Fall Risk Assessment (Adult) History of falling in the last 3 months, jj7 including since admission No falls in past 3 months (0 pts) Confusion or Disorientation No (0 pts) Intoxicated or Sedated No (0 pts) Impaired Gait No (0 pts) Mobility Assist Device Used No (0 pt) Altered Elimination No (0 pt) Score/Fall Risk Level 0 - 2 = Low Risk Oriented to surroundings, Maintained a safe environment, Educated pt \T\ family on fall prevention, incl call for assistance when getting out of bed. Abuse screen: Denies threats or abuse. Nutritional screening: No deficits noted. Tuberculosis screening: No symptoms or risk factors identified. Assessment: 20:05 Reassessment: SEE TRIAGE ASSESSMENT. jj7 23:30 Reassessment: Patient states feeling better. Patient states symptoms have improved. jj7 Vital Signs: 20:01 BP 131 / 89; Pulse 136; Resp 21; Temp 101.3; Pulse Ox 100% ; Weight 61.23 kg; Height 5 jj7 ft. 3 in. ; Pain 5/10; 23:29 BP 109 / 74; Pulse 98; Resp 16; Temp 98.5; Pulse Ox 98% ; jj7 20:01 Body Mass Index 23.91 (61.23 kg, 160.02 cm) jj7 20:01 Pain Scale: Adult jj7 ED Course: 19:39 Patient arrived in ED. gm2 19:50 Amad[facility] Jones PA [facility]. cp 19:50 Amadou Gill MD is Attending Physician. cp 20:05 Triage completed. jj7 20:05 Arm band placed on right wrist. jj7 20:05 Patient has correct armband on for positive identification. Provided Education on: MED jj7 USAGE. 20:05 No provider procedures requiring assistance completed. Patient did not have IV access jj7 during this emergency room visit. 20:19 Strep Sent. jj7 20:19 COVID-19 SARS RT PCR Sent. jj7 20:19 Flu Sent. jj7 Administered Medications: 20:19 Drug: Acetaminophen PO 650 mg PO once Route: PO; jj7 21:30 Follow up: Response: Temperature is decreased jj7 Medication: 20:05 VIS not applicable for this client. jj7 Outcome: 23:33 Discharge ordered by . cp 23:43 Discharged to home ambulatory, with significant other, jj7 23:43 Condition: improved 23:43 Discharge instructions given to patient, Instructed on discharge instructions, medication usage, Demonstrated understanding of instructions, medications, Prescriptions given X 3, 23:45 Patient left the ED. jj7 Signatures: Amadou Jones PA PA cp Johnson, Juwairiyah RN RN jj7 Ayala Madrigal 2
[2023-04-17 00:35] VITALS: BP 109/74; TEMP 98.5; O2SAT 98
== END 2023-04-16 23:45 | disposition home or self-care (01) ==
LOC: ER 19:34
DX: J10.1 Influenza due to other identified influenza virus with other respiratory manifestations (principal); Z11.52 Encounter for screening for COVID-19; Z88.0 Allergy status to penicillin; Z88.1 Allergy status to other antibiotic agents
CPT/HCPCS: 87070; 87081; 87635; 87804; 99284